=== PATIENT | male | born 1970 | race Caucasian/White ===

== ENCOUNTER 2023-05-17 13:41 | Emergency (ER) | payer MEDICAID, OTHER ==
[~2023-05-17] VITALS: Ht 177.8 cm; Wt 81.0 kg
[2023-05-17 14:22] VITALS: TEMP 98.3; O2SAT 100
[2023-05-17] MEDS ORDERED: IBUP-2029 MT (18:28)
[2023-05-17 18:30] VITALS: BP 130/70; PULSE 60; RESP 20
[2023-05-17] MEDS ORDERED: IBUPROFEN 600MG TABLET PO ONE (18:30)
[2023-05-17] MEDS ORDERED: CEPH500C2 MT (18:31)
== END 2023-05-17 18:47 | disposition home or self-care (01) ==
LOC: ER 13:41
DX: S62.634B Displaced fracture of distal phalanx of right ring finger, initial encounter for open fracture (principal); W26.8XXA Contact with other sharp object(s), not elsewhere classified, initial encounter; Y93.89 Activity, other specified; Y92.89 Other specified places as the place of occurrence of the external cause; Y99.8 Other external cause status
CPT/HCPCS: 73140; 29130; 99283; Z7610